=== PATIENT | female | born 2000 | race Caucasian/White ===

== ENCOUNTER 2020-01-25 13:17 | Outpatient (CLI) | payer MEDICAID ==
--- NOTE | 2020-01-25 13:20 | NUR ---
Pt arrives on unit ambulatory with significant other. States LOF since 01/21/2020 around 1200. Pt states a few "gushes" the past few days, and a steady "wetness." Reports GFM. Denies ctx and vaginal bleeding. Pt recieved care in [facility] and is transferring to [facility]. First appointment with [facility] was scheduled for today, however with the LOF, was advised to come to the ED. EFM and toco applied. VSS. Admission assessment completed. Amniotest negative. SVE unobtainable due to position. No fluid noted on glove. Labia majoria moist to touch. Denies intercourse from the past [address] Estes notified. Orders from [facility]. Pt updated on POC. No questions or concerns at this time.
[2020-01-25 14:27] VITALS: BP 130/72; PULSE 94; TEMP 98
== END 2020-01-25 14:30 | disposition home or self-care (01) ==
LOC: LDRO 13:17
DX: O42.912 Preterm premature rupture of membranes, unspecified as to length of time between rupture and onset of labor, second trimester (principal); Z3A.23 23 weeks gestation of pregnancy; Z86.19 Personal history of other infectious and parasitic diseases

== ENCOUNTER 2020-05-16 11:35 | Outpatient (CLI) | payer MEDICAID ==
[~2020-05-16] VITALS: Ht 172.7 cm; Wt 85.9 kg
--- NOTE | 2020-05-16 11:45 | NUR ---
Pt arrives on unit ambulatory with spouse. States discharge at 0600 after recent intercourse over the past 24 hours. Denies vaginal bleeding, ctx, and reports GFM. Changed into clean gown. EFM and toco applied. VSS. Amniotest negative. SVE per this RN /-3. White discharge noted on glove. Amniotest negative on glove. Roles on unit. Orders to observe x 1 hour. Admission assessment completed. Pt updated on POC. Bed locked in low position. Call light within reach. No questions or concerns at this time.
[2020-05-16 12:50] VITALS: BP 137/80; PULSE 110; TEMP 98
== END 2020-05-16 12:45 | disposition home or self-care (01) ==
LOC: LDRO 11:35 → LDR 11:40 → LDRO 12:45
DX: O26.893 Other specified pregnancy related conditions, third trimester (principal); Z3A.38 38 weeks gestation of pregnancy
CPT/HCPCS: OP

== ENCOUNTER 2020-05-22 13:01 | Outpatient (CLI) | payer MEDICAID ==
[~2020-05-22] VITALS: Ht 172.7 cm; Wt 87.3 kg
--- NOTE | 2020-05-22 13:15 | NUR ---
Patient ambulatory onto unit with at side for labor check. Patient reports back pain/pressure, increased vaginal discharge with blood, and decreased movement. Patient reports gush of watery fluid this morning. Reports having intercourse last night. EFMs on, VS taken. AmniTrace negative. SVE FT/50/-3. Assessment completed. Will notify for further orders. Call light within reach.
[2020-05-22 13:20] VITALS: BP 129/82; PULSE 104; TEMP 97.7
--- NOTE | 2020-05-22 14:10 | NUR ---
Plan of care discussed with patient. EFMs off. Discharge instructions given to patient by Abelino HAYES. Patient ambulatory off of unit at this time.
[2020-05-23] MEDS ORDERED: PRENATAL PO (04:39)
== END 2020-05-22 14:10 | disposition home or self-care (01) ==
LOC: LDRO 13:01
DX: O36.8130 Decreased fetal movements, third trimester, not applicable or unspecified (principal); O46.93 Antepartum hemorrhage, unspecified, third trimester; Z3A.39 39 weeks gestation of pregnancy

== ENCOUNTER 2020-05-23 04:11 | Inpatient (IN) | payer MEDICAID ==
[~2020-05-23] VITALS: Ht 172.7 cm; Wt 87.3 kg
[2020-05-23] VITALS (48 sets, daily range): BP systolic 99–149; BP diastolic 56–95; PULSE 63–136; TEMP 97.7–99.1
--- NOTE | 2020-05-23 04:15 | NUR ---
PT TO UNIT AMBULATORY WITH FOB WITH COMPLAINTS OF CONTRACTIONS THAT BEGAN LAST EVENING AROUND 1800. PT ORIENTED TO ROOM, CHANGED INTO GOWN, SVE PERFORMED, VS OBTAINED, EFMX2 APPLIED.
[2020-05-23] MEDS ORDERED: PRENATAL PO (04:39)
--- NOTE | 2020-05-23 06:30 | NUR ---
Bedside report received from Inocencio Austin RN. Plan of care reviewed with patient and SO who verbalize understanding. Consent forms explained and signed. 0710- Side lying hip release. 0730- SVE /2. PAU. Left tilt.
[2020-05-23 06:58] LABS: BASO % 0.3 % (0.0-2.0); EOS # 0.1 (0.0-0.7); EOS % 0.4 % (0-4.0); GRAN # 10.8 (1.4-6.5); GRAN % 75.8 % (42.2-75.2); HEMATOCRIT 37.8 % (35.0-45.0); LYMPH # 2.6 (1.2-3.4); LYMPH % 18.1 % (20.0-51.0); MEAN CELL VOLUME 90 fl (80.0-95.0); MEAN CORPUSCULAR HEMOGLOBIN 29 pg (26.0-32.0); MEAN CORPUSCULAR HGB CONC 32 g/dl (33.0-37.0); MEAN PLATELET VOLUME 11.8 fl (7.4-10.4); MONO # 0.6 (0.1-0.6); MONO % 4.1 % (1.7-9.3); PLATELET COUNT 226 K/mm3 (130-400); RED BLOOD COUNT 4.19 M/mm3 (4.10-5.30); REDCELL DISTRIBUTION WIDTH-CV 14.2 % (11.5-14.5)
--- NOTE | 2020-05-23 07:50 | NUR ---
Patient repositioned to edge of bed. Maternal HR tracing. Patient to bathroom to void.
--- NOTE | 2020-05-23 09:45 | NUR ---
0928- Dr. Valentin updated on patient. See physician notificaiton. 0945- Patient requesting epidural. Khai Tay CRNA notified. LR bolus started. 1008- Patient to edge of bed. RN at bedside adj. EFM. Khai Tay CRNA at bedside for epidural placement. 1021- Epidural placed and test dose at this time by Khai Tay CRNA. 1026- Patient wedge left. Plan of care and safety precautions reviewed with patient and SO who verbalize understanding. Resting with call light within reach. 1034- Dr. Valentin at bedside. AROM at this time. SVE per provider 3-/-2. No fluid noted. Bobbi care provided, and pad placed. Will cont to monitor. Dr. Valentin reviews plan of care with patient and SO who verbalize understanding. Patient denies questions or needs at this time.
--- NOTE | 2020-05-23 13:15 | NUR ---
FHR with intermittent early and late decels. Patient high right lateral. LR bolus given.
--- NOTE | 2020-05-23 15:40 | NUR ---
1540- Patient reports increased rectal pressure. SVE C/+1. Dr. Valentin updated on patient. See physician notification. 1555- Higuera catheter removed. Bobbi care provided and pads changed. Patient instructed on pushing with contractions. 1600- Patient begins to push with contractions with RN at bedside. Strong maternal effort noted. Moves vertex well. 1625- Dr. Valentin on unit and at bedside to evaluate pt and pushing efforts. RN continues to push with patient. Moves vertex well. 1642- FHR in 's Dr. Valentin requested at bedside. Patient prepped for delivery. 1650- Spontaneous vaginal delivery of viable male . NC x1 reduced on the perineum. Nares and mouth suctioned by Dr. Valentin. Cord clamped x2 and cut. [place]pton to mother's chest where dried and stimulated by Tenzin Zapata RN who assumes care of at this time. Pitocin paused. 1654- Spontaneous and intact delivery of placenta. Pitocin resumed at 333ml/hr per protocol. 2nd degree perineal laceration repired by Dr. Valentin. Bobbi care provided, pads changed, and ice pack to perineum. Fundus firm, midline, and bleeding minimal. Plan of care and safety precautions reviewed with patient and SO who verbalize understanding. Denies questions or needs at this time. See doctor dictation, anesthesia record, and nurses notes.
[2020-05-24 01:00] VITALS: BP 109/62; PULSE 93; TEMP 98.4
[2020-05-24 04:17] VITALS: BP 117/77; PULSE 77; TEMP 98.3
[2020-05-24 07:15] VITALS: BP 120/67; PULSE 80; TEMP 97.8
[2020-05-24] MEDS ORDERED: IBU800 M1 PO (08:29)
--- NOTE | 2020-05-24 10:15 | NUR ---
Initial visit; Visitor, [employer] left card of congratulations and God's blessings for the of their son and information regarding the availability of spiritual care at [facility].
[2020-05-24 12:00] VITALS: BP 124/65; PULSE 97; TEMP 97.8
[2020-05-24 17:50] VITALS: BP 124/73; PULSE 90; TEMP 98.1
[2020-05-24 19:58] VITALS: BP 124/77; PULSE 86; TEMP 98.9
[2020-05-25 07:02] VITALS: BP 112/64; PULSE 79; TEMP 97.5
--- NOTE | 2020-05-25 11:29 | NUR ---
Patient given discharge instructions. Denies questions.
== END 2020-05-25 11:45 | disposition home or self-care (01) | DRG 807 ==
LOC: LDRO 04:11 → LDR 04:31 → LDRO 06:13 → LDR 06:15 → OB 06:15
PROVIDERS: ADMIT Student in an Organized Health Care Education/Training Program
PROC: 10E0XZZ Delivery of Products of Conception, External Approach (ICD-10-PCS; principal; 2020-05-23)
PROC: 0KQM0ZZ Repair Perineum Muscle, Open Approach (ICD-10-PCS; 2020-05-23)
PROC: 10907ZC Drainage of Amniotic Fluid, Therapeutic from Products of Conception, Via Natural or Artificial Opening (ICD-10-PCS; 2020-05-23)
DX: O69.81X0 Labor and delivery complicated by cord around neck, without compression, not applicable or unspecified (principal); Z37.0 Single live birth; O70.1 Second degree perineal laceration during delivery; Z3A.39 39 weeks gestation of pregnancy
CPT/HCPCS: J2590; J7120